=== PATIENT | male | born 1970 | race Two or more races ===

== ENCOUNTER → 2024-08-03 | Day surgery (SDC) | payer MEDICAID, OTHER ==
[~2024-08-03] VITALS: Ht 165.1 cm; Wt 88.5 kg
[~2024-08-03] MED LIST: APIX5TAB PO
== END | disposition home or self-care (01) ==
LOC: CATH 06:24
PROVIDERS: ATTEND Internal Medicine
DX: I73.9 Peripheral vascular disease, unspecified (principal); Z53.8 Procedure and treatment not carried out for other reasons; J45.909 Unspecified asthma, uncomplicated; Z86.718 Personal history of other venous thrombosis and embolism; Z91.018 Allergy to other foods